=== PATIENT | female | born 1955 | race Hispanic/Latino ===

== ENCOUNTER 2020-08-19 22:37 | Inpatient (IN) | payer OTHER, SELFPAY ==
[2020-08-19 23:21] LABS: Arterial Blood Carboxyhemoglob 1.5 % (0-1.5); Blood Gas Oxyhemoglobin 89.4 % (94-97); Blood O2 Saturation 91.6 % (92-98.5)
[2020-08-19] MEDS ORDERED: ALBUTEROL INHALER 60 PUFF/8 GM IH ONE (23:38)
[2020-08-19 23:39] LABS: Absolute Lymphocytes (CBC) 1.7 K/uL (0.7-4.9); Lymphocytes % 19.8 % (15.3-44.8); MPV 8.8 fL (7.6-11.3); RBC Red Blood Cell Count 4.15 M/uL (3.86-4.86)
[2020-08-19 23:42] LABS: Protime INR 0.97
[2020-08-20 00:12] LABS: Albumin 3.1 g/dL (3.4-5.0); Bilirubin Direct 0.1 mg/dL (0-0.2); Bilirubin Total 0.3 mg/dL (0.2-1.0); Magnesium 2.2 mg/dL (1.8-2.4); Potassium 4.6 mmol/L (3.5-5.1); Protein, Total 7.3 g/dL (6.4-8.2)
--- NOTE | 2020-08-20 00:26 | EDPHYS ---
Physician Documentation [facility] Name: Cristela Post Age: 65 yrs Sex: Female : 1955 Arrival Date: 08/19/2020 Time: 22:38 Bed 4 Private MD: ED Physician Fernando Alvares HPI: 08/19 23:21 This 65 yrs old Female presents to ER via EMS with complaints of Breathing pkl Difficulty. 23:21 The patient has shortness of breath at rest. Onset: The symptoms/episode began/occurred pkl 1 month(s) ago, and became worse 4 day(s) ago. Associated signs and symptoms: The patient has no apparent associated signs or symptoms. Patient said she had the same symptoms when she had cardiac stents placement about 20 years ago. Historical: - Allergies: 22:54 No Known Allergies; rv - PMHx: 22:54 Diabetes - IDDM; Hyperlipidemia; Hypertension; rv - PSHx: 22:54 CARDIAC STENT; Cholecystectomy; ; rv - Immunization history:: Adult Immunizations up to date, Flu vaccine is not up to date. - Social history:: Smoking status: Patient/guardian denies using tobacco, the patient reports quitting approximately 40 years ago. ROS: 23:21 Eyes: Negative for injury, pain, redness, and discharge, ENT: Negative for injury, pkl pain, and discharge, Neck: Negative for injury, pain, and swelling, Cardiovascular: Negative for chest pain, palpitations, and edema. 23:21 Respiratory: Positive for shortness of breath. 23:21 Abdomen/GI: Negative for abdominal pain, nausea, vomiting, and diarrhea. 23:21 Back: Negative for acute changes. 23:21 : Negative for urinary symptoms. 23:21 MS/extremity: Negative for acute changes. 23:21 Skin: Negative for rash. 23:21 Neuro: Negative for altered mental status. Exam: 23:21 Head/Face: Normocephalic, atraumatic. Eyes: Pupils equal round and reactive to light, pkl extra-ocular motions intact. Lids and lashes normal. Conjunctiva and sclera are non-icteric and not injected. Cornea within normal limits. Periorbital areas with no swelling, redness, or edema. ENT: Nares patent. No nasal discharge, no septal abnormalities noted. Tympanic membranes are normal and external auditory canals are clear. Oropharynx with no redness, swelling, or masses, exudates, or evidence of obstruction, uvula midline. Mucous membranes moist. Neck: Trachea midline, no thyromegaly or masses palpated, and no cervical lymphadenopathy. Supple, full range of motion without nuchal rigidity, or vertebral point tenderness. No Meningismus. Chest/axilla: Normal chest wall appearance and motion. Nontender with no deformity. No lesions are appreciated. Cardiovascular: Regular rate and rhythm with a normal S1 and S2. No gallops, murmurs, or rubs. Normal PMI, no JVD. No pulse deficits. 23:21 Respiratory: the patient does not display signs of respiratory distress, Respirations: labored breathing, that is mild, Breath sounds: bronchial sounds, that are mild, are scattered. 23:21 Abdomen/GI: Bowel sounds: normal, Palpation: abdomen is soft and non-tender, in all quadrants. 23:21 Back: Exam negative for acute changes. 23:21 : Exam negative for acute changes. 23:21 Musculoskeletal/extremity: Exam is negative for acute changes. 23:21 Skin: Exam negative for rash. 23:21 Neuro: Orientation: is normal, Mentation: is normal, Cranial nerves: grossly normal, Motor: is normal. Vital Signs: 22:48 BP 131 / 65; Pulse 95; Resp 27; Pulse Ox 94% on R/A; Weight 124.74 kg; Height 5 ft. 3 rv in. (160.02 cm); Pain 0/10; 08/20 00:00 BP 115 / 63; Pulse 90; Resp 20; Pulse Ox 94% on R/A; rv 00:30 BP 115 / 72; Pulse 80; Resp 20; Pulse Ox 93% on R/A; rv 01:00 BP 129 / 75; Pulse 85; Resp 19; Pulse Ox 93% on R/A; rv 01:30 BP 133 / 82; Pulse 76; Resp 14; Pulse Ox 94% on R/A; rv 02:57 BP 135 / 62; Pulse 73; Resp 15; Temp 99; Pulse Ox 94% on R/A; rv 08/19 22:48 Body Mass Index 48.71 (124.74 kg, 160.02 cm) rv MDM: 08/19 22:39 Patient medically screened. pkl 08/20 00:22 Data reviewed: vital signs, nurses notes, lab test result(s), EKG, radiologic studies, pkl plain films. ED course: Talk to Yoseph Rojas, admit to Dr. Skelton. 08/19 23:06 Order name: Basic Metabolic Panel pkl 08/19 23:06 Order name: CBC with Diff pkl 08/19 23:06 Order name: LFT's; Complete Time: 00:26 pkl 08/19 23:06 Order name: Magnesium; Complete Time: 00:26 pkl 08/19 23:06 Order name: NT PRO-BNP; Complete Time: 00:26 pkl 08/19 23:06 Order name: PT-INR; Complete Time: 23:51 pkl 08/19 23:06 Order name: Troponin (emerg Dept Use Only); Complete Time: 00:26 pkl 08/19 23:06 Order name: ABG; Complete Time: 23:51 pkl 08/19 23:06 Order name: D-Dimer; Complete Time: 23:51 pkl 08/19 23:06 Order name: Blood Culture Adult (2) pkl 08/19 23:06 Order name: Lactate; Complete Time: 00:26 pkl 08/19 23:06 Order name: Procalcitonin; Complete Time: 00:26 pkl 08/19 23:06 Order name: COVID-19 pkl 08/19 23:07 Order name: Basic Metabolic Panel; Complete Time: 00:26 EDMS 08/19 23:07 Order name: CBC with Automated Diff; Complete Time: 23:51 EDMS 08/20 01:08 Order name: Basic Metabolic Panel EDMS 08/20 01:08 Order name: Basic Metabolic Panel EDMS 08/20 01:08 Order name: CBC with Automated Diff EDMS 08/20 01:08 Order name: CBC with Automated Diff EDMS 08/20 01:08 Order name: Lipid Profile EDMS 08/20 01:08 Order name: Lipid Profile EDMS 08/20 01:08 Order name: Protime (+INR) EDMS 08/20 01:08 Order name: Protime (+INR) EDMS 08/20 01:08 Order name: PTT, Activated Partial Thromb EDMS 08/20 01:08 Order name: PTT, Activated Partial Thromb EDMS 08/20 01:08 Order name: Troponin I EDMS 08/20 01:08 Order name: Troponin I EDMS 08/20 01:08 Order name: Troponin I EDMS 08/20 01:08 Order name: Troponin I EDMS 08/20 01:08 Order name: Troponin I EDMS 08/19 23:06 Order name: XRAY Chest (1 view) pkl 08/19 23:06 Order name: EKG; Complete Time: 23:07 pkl 08/19 23:06 Order name: Cardiac monitoring; Complete Time: 23:28 pkl 08/19 23:06 Order name: EKG - Nurse/Tech; Complete Time: 00:05 pkl 08/19 23:06 Order name: IV Saline Lock; Complete Time: 23:29 pkl 08/19 23:06 Order name: Labs collected and sent; Complete Time: 23:29 pkl 08/19 23:06 Order name: O2 Per Protocol; Complete Time: 23:29 pkl 08/19 23:06 Order name: O2 Sat Monitoring; Complete Time: 23:29 pkl 08/20 01:04 Order name: CONS Physician Consult EDMS 08/20 01:08 Order name: NPO EDMS 08/20 01:10 Order name: Echo with Doppler EDMS 08/20 01:10 Order name: Vent Perfusion VQ Scan EDMS 08/20 02:27 Order name: SARS-COV-2 RT PCR; Complete Time: 05:34 EDMS 08/20 02:55 Order name: Lactate Sepsis 2 HR Follow-up; Complete Time: 05:34 EDMS Administered Medications: 08/19 23:29 Not Given (N/A): Albuterol - atroVENT (3:1) (2.5 mg - 0.5 mg) 3 ml Nebulizer once rv 23:29 Drug: Albuterol HFA Inhaler 2 puffs Route: Inhalation; rv 08/20 01:48 Follow up: Response: No adverse reaction rv Disposition: 08/20/20 00:25 Hospitalization ordered by Josh Skelton for Inpatient Admission. Preliminary diagnosis is Acute dyspnea. Hypoxia. Elevated Troponin. Chronic renal disease. - Bed requested for Telemetry/MedSurg (Inpatient). - Status is Inpatient Admission. rv - Condition is Stable. - Problem is new. - Symptoms are unchanged. Signatures: Dispatcher [employer] EDFernando Mendoza MD MD pkl Garcia Nova, AMY RN cg Joey Fletcher RN RN rv Corrections: (The following items were deleted from the chart) 02:40 00:25 Hospitalization Ordered by Josh Skelton MD for Inpatient Admission. Preliminary cg diagnosis is Acute dyspnea. Hypoxia. Elevated Troponin. Chronic renal disease. Bed requested for Telemetry/MedSurg (Inpatient). Status is Inpatient Admission. Condition is Stable. Problem is new. Symptoms are unchanged. pkl 02:58 02:40 08/20/2020 00:25 Hospitalization Ordered by Josh Skelton MD for Inpatient rv Admission. Preliminary diagnosis is Acute dyspnea. Hypoxia. Elevated Troponin. Chronic renal disease. Bed requested for Telemetry/MedSurg (Inpatient). Status is Inpatient Admission. Condition is Stable. Problem is new. Symptoms are unchanged. cg
--- NOTE | 2020-08-20 00:26 | ER ---
Nurse's Notes [facility] Name: Cristela Post Age: 65 yrs Sex: Female : 1955 Arrival Date: 08/19/2020 Time: 22:38 Bed 4 Private MD: Diagnosis: Acute dyspnea. Hypoxia. Elevated Troponin. Chronic renal disease Presentation: 08/19 22:48 Chief complaint: EMS states: PATIENT HAS BEEN COMPLAINING OF SOB FOR FOUR DAYS. DENIES rv CHEST PAIN. NO FEVER. SATURATION IS AT 92% AT HOME, REFUSED OXYGEN SUPPLEMENTATION. TACHYPNEIC AT REST. BGL IS 304. PATIENT IS NOT COMPLIANT WITH INSULIN TREATMENT. Coronavirus screen: Client denies travel out of the [place] in the last 14 days. difficulty breathing, shortness of breath, Client presents with at least one sign or symptom that may indicate coronavirus-19. Standard/surgical mask placed on the client. Provider contacted for isolation considerations. The client reports previous COVID testing was negative. Date of collection: August 13, 2020 Aug, RESULT IS NEGATIVE. Ebola Screen: No symptoms or risks identified at this time. Initial Sepsis Screen: Does the patient meet any 2 criteria? RR > 20 per min. HR > 90 bpm. Yes Does the patient have a suspected source of infection? Yes:. Risk Assessment: Do you want to hurt yourself or someone else? Patient reports no desire to harm self or others. Onset of symptoms was August 15, 2020. 22:48 Method Of Arrival: EMS: [facility] rv 22:48 Acuity: MILDRED 3 rv Triage Assessment: 22:54 General: Appears uncomfortable, Behavior is calm, cooperative. Pain: Denies pain. EENT: rv No signs and/or symptoms were reported regarding the EENT system. Neuro: Level of Consciousness is awake, alert, obeys commands, Oriented to person, place, time, situation. Cardiovascular: Patient's skin is warm and dry. Respiratory: Reports shortness of breath at rest Onset: The symptoms/episode began/occurred gradually, the patient has mild shortness of breath. Derm: Skin is intact. Historical: - Allergies: 22:54 No Known Allergies; rv - PMHx: 22:54 Diabetes - IDDM; Hyperlipidemia; Hypertension; rv - PSHx: 22:54 CARDIAC STENT; Cholecystectomy; ; rv - Immunization history:: Adult Immunizations up to date, Flu vaccine is not up to date. - Social history:: Smoking status: Patient/guardian denies using tobacco, the patient reports quitting approximately 40 years ago. Screenin:55 Abuse screen: Denies threats or abuse. Denies injuries from another. Nutritional rv screening: No deficits noted. Tuberculosis screening: No symptoms or risk factors identified. Fall Risk None identified. Assessment: 22:55 Respiratory: Airway is patent Respiratory effort is even, Respiratory pattern is rv tachypnea 22:56 Cardiovascular: Rhythm is regular. rv 23:38 Respiratory: Breath sounds are clear bilaterally. rv 08/20 01:47 Reassessment: patient is comfortable in upright position. vital signs stable. denies rv chest pain. Neuro: Level of Consciousness is awake, alert, obeys commands, Oriented to person, place, time, situation. Vital Signs: 08/19 22:48 BP 131 / 65; Pulse 95; Resp 27; Pulse Ox 94% on R/A; Weight 124.74 kg; Height 5 ft. 3 rv in. (160.02 cm); Pain 0/10; 08/20 00:00 BP 115 / 63; Pulse 90; Resp 20; Pulse Ox 94% on R/A; rv 00:30 BP 115 / 72; Pulse 80; Resp 20; Pulse Ox 93% on R/A; rv 01:00 BP 129 / 75; Pulse 85; Resp 19; Pulse Ox 93% on R/A; rv 01:30 BP 133 / 82; Pulse 76; Resp 14; Pulse Ox 94% on R/A; rv 02:57 BP 135 / 62; Pulse 73; Resp 15; Temp 99; Pulse Ox 94% on R/A; rv 08/19 22:48 Body Mass Index 48.71 (124.74 kg, 160.02 cm) rv ED Course: 08/19 22:38 Patient arrived in ED. cl3 22:39 Fernando Alvares MD is Attending Physician. pkl 22:48 Joey Fletcher RN is Primary Nurse. rv 22:52 Triage completed. rv 22:55 Arm band placed on right wrist. Patient placed in the treatment room, on a stretcher, rv Patient notified of wait time. 22:56 Patient has correct armband on for positive identification. Pulse ox on. NIBP on. rv 23:43 Notified ED physician of a critical lab result(s). D dimer of 667. fc 23:44 XRAY Chest (1 view) In Process Unspecified. EDMS 08/20 00:24 Josh Skelton MD is Hospitalizing Provider. pkl 00:30 No provider procedures requiring assistance completed. Inserted saline lock: 22 gauge rv in left forearm, using aseptic technique. Blood collected. 00:30 Initial lab(s) drawn, by ED staff, sent to lab. rv 01:47 Awaiting bed assignment, Awaiting lab results. rv 02:57 IV is patent, with fluids infusing freely, Patient admitted, IV remains in place. rv Administered Medications: 08/19 23:29 Not Given (N/A): Albuterol - atroVENT (3:1) (2.5 mg - 0.5 mg) 3 ml Nebulizer once rv 23:29 Drug: Albuterol HFA Inhaler 2 puffs Route: Inhalation; rv 08/20 01:48 Follow up: Response: No adverse reaction rv Outcome: 00:25 Decision to Hospitalize by Provider. pkl 02:57 Admitted to Tele accompanied by nurse, via wheelchair, room 403, Other sbar Report rv called to STONEY REYES 02:57 Condition: good 02:57 Instructed on the need for admit. 02:58 Patient left the ED. rv Signatures: Dispatcher [employer] EDMS Fernando Alvares MD MD pkl Christelle Rosado, RN RN Joey Reyes RN RN Kimberly Betancourt cl3
[2020-08-20] MEDS ORDERED: NA CHLORIDE 0.9% 1,000 ML ONE (01:48)
[2020-08-20] MEDS ORDERED: INSULIN -REGULAR HUMAN 50 UNIT/0.5 ML ML ONE (01:48)
--- NOTE | 2020-08-20 01:52 | P.HP ---
Certification for Inpatient With expected LOS: >2 Midnights Patient will require the following post-hospital care: None Practitioner: I am a practitioner with admitting privileges, knowledge of patient current condition, hospital course, and medical plan of care. Services: Services provided to patient in accordance with Admission requirements found in Title 42 Section 412.3 of the Code of Federal Regulations <Sergio Rojas - Last Filed: 08/20/20 01:47> Patient History Date of Service: 08/20/20 Reason for admission: Dyspnea/NSTEMI/acute kidney injury History of Present Illness: 65-year-old morbidly obese female with a past medical history of type 2 diabetes mellitus, hyperlipidemia and hypertension presents to the emergency room complaining of shortness of breath at rest. Patient states that over the past month or so she has progressively noted worsening shortness of breath. States that it became worse 4 days ago and that today she had shortness of breath at rest. Patient states that she does not wear home oxygen and has never had COPD. She has not seen a physician recently. In the emergency room patient is alert and oriented x3, in no distress, pleasant and cooperative. Patient states that she feels like she just can't catch her breath. States that she had cardiac stents placed approximately 20 years ago. Emergency room lab work shows an elevated D-dimer of 667, a troponin of 4.0 x1, a blood glucose of 312[place] [address], a creatinine level of 1.55 with a GFR of 34. A BUN of 34. A PO2 of 66.7 with a pH of 7.4 and a lactic acid of 3.0. Vitals are stable with a blood pressure of 131/65, pulse rate of 95, respiratory of 27 and a pulse ox of 94% on room air. Patient weighs 125 kilos and is 5 foot 3 inches tall P her body mass index is 48.7. She denies chest pain at any time. Denies nausea vomiting diarrhea. Patient states that she had a Covid 19 screening done that was negative on August 13. States she has not been around anybody infected. Patient will be admitted and further evaluated. Home medications list reviewed: No - Past Medical/Surgical History Diabetic: Yes -: DM -: HYPERLIPIDEMIA -: HTN -: ETOPIC -: Morbidly obese -: HEART STENTS -: NELSON -: -: KIDNEY STENTS Psychosocial/ Personal History: Lives at home with children. - Family History Family History: Reviewed- Non-Contributory - Social History Smoking Status: Never smoker Alcohol use: No CD- Drugs: No Caffeine use: Yes Place of Residence: Home <Sergio Rojas - Last Filed: 08/20/20 01:47> Date of Service: 08/20/20 <Papi Skeltonkingston Callahan - Last Filed: 08/25/20 08:14> Allergies [place] Allergy (Verified 08/20/20 05:12) Anaphylaxis Home Medications: Aspirin 325 mg PO DAILY 04/18/16 Clopidogrel Bisulfate [Plavix*] 75 mg PO DAILY 04/18/16 Gabapentin [Gralise] 300 mg PO BID 04/18/16 Losartan Potassium [Cozaar] 100 mg PO DAILY 04/18/16 Metformin HCl [Glucophage] 1,000 mg PO BID 04/18/16 Metoprolol Tartrate [Lopressor] 100 mg PO BID 04/18/16 Rosuvastatin [Crestor*] 20 mg PO BEDTIME 04/18/16 Amitriptyline [Elavil] 25 mg PO BID 08/20/20 Chlorthalidone 25 mg PO DAILY 08/20/20 Cholecalciferol (Vitamin D3) [Vitamin D3] 5,000 unit PO DAILY 08/20/20 Ferrous Fumarate/Vit Bcomp&C [Super B-Complex Caplet] 1 each PO DAILY 08/20/20 Insulin Degludec [Tresiba] 80 unit SQ BEDTIME 08/20/20 NPH, Human Insulin Isophane [Humulin N] 100 unit SQ AC 08/20/20 Review of Systems General: As per HPI Eyes: Unremarkable ENT: Unremarkable Respiratory: Shortness of Breath, SOB with Excertion, As per HPI Cardiovascular: As per HPI Gastrointestinal: Unremarkable Genitourinary: Unremarkable Musculoskeletal: Unremarkable Integumentary: Unremarkable Neurological: Unremarkable Lymphatics: Unremarkable <Sergio Rojas - Last Filed: 08/20/20 01:47> Physical Examination - Vital Signs Blood Pressure: 131/65 Pulse: 95 Respirations: 27 Pulse Ox (%): 94 (RA) - Physical Exam General: Alert, In no apparent distress, Oriented x3 HEENT: Atraumatic, Normocephalic, PERRLA, Mucous membr. moist/pink Neck: Supple, No Thyromegaly, Other (Trachea midline) Respiratory: Diminished Cardiovascular: No edema, Normal pulses, Regular rate/rhythm, Normal S1 S2 Gastrointestinal: Normal bowel sounds, Soft and benign, Non-distended Musculoskeletal: No clubbing, No swelling, No contractures, No erythema Integumentary: No rashes, No breakdown, No significant lesion Neurological: Normal gait, Normal speech, Normal strength at 5/5 x4 extr, Normal tone - Studies Laboratory Data (last 24 hrs) 08/19/20 23:05: PT 11.5, INR 0.97 08/19/20 23:05: WBC 8.4, Hgb 10.9 L, Hct 34.0 L, Plt Count 314 08/19/20 23:05: Sodium 136, Potassium 4.6, BUN 34 H, Creatinine 1.55 H, Glucose 312 H, Magnesium 2.2, Total Bilirubin 0.3, AST 73 H, ALT 66, Alkaline Phosphat ase 161 H <Sergio Rojas - Last Filed: 08/20/20 01:47> - Studies Microbiology Data (last 24 hrs): 08/19/20 23:49 Blood - Blood Aerobic Blood Culture - Final No growth in 5 days. 08/19/20 23:49 Blood - Blood Anaerobic Blood Culture - Final No growth in 5 days. 08/19/20 23:40 Blood - Blood Aerobic Blood Culture - Final No growth in 5 days. 08/19/20 23:40 Blood - Blood Anaerobic Blood Culture - Final No growth in 5 days. <Josh Skelton - Last Filed: 08/25/20 08:14> Assessment and Plan - Plan Impression: NSTEMI with a history of cardiac stents x2 20 years ago: Acute respiratory failure: Acute kidney injury: Dyspnea with an elevated D-dimer: Morbid obesity: Plan: NSTEMI with a history of cardiac stents x2 20 years ago: Troponin of 4.0 on arrival to ED. Will continue to trend. Place on continuous telemetry. Full- dose Lovenox of 120 mg b.i.d.. Patient weighs 125 kg. [place]chocardiogram [place] [address]+ Cardiology consult. Acute respiratory failure: Room air saturations of 94%. Patient feels as if she cannot breathe. She is noted to have an elevated D-dimer as well. Will hold off on diuretics due to poor renal function. Will provide O2 support if necessary P Acute kidney injury: Creatinine of 1.55 on admission. Will gently diurese x1 a L of fluid only at 50 mL/hour. Will monitor daily labs. Monitor creatinine. BUN elevated at 38. Dyspnea with an elevated D-dimer: Patient's D-dimer was noted to be 667. Due to her poor renal function CTA to rule out PE is not possible. Will order V/Q scan for the morning. Continue telemetry as above. Monitor O2 saturations and provide O2 support if necessary. Patient on full-dose Lovenox. Morbid obesity: BMI of 48. Counseled. Discharge Plan: Home Plan to discharge in: Greater than 2 days - Advance Directives Does patient have a Living Will: No Does patient have a Durable POA for Healthcare: No - Code Status/Comfort Care Code Status Assessed: Yes Time Spent Managing Pts Care (In Minutes): 55 <Sergio Rojas - Last Filed: 08/20/20 01:47> - Problems (Diagnosis) (1) NSTEMI (non-ST elevated myocardial infarction) Current Visit: Yes Status: Acute (2) DM2 (diabetes mellitus, type 2) Current Visit: Yes Status: Acute (3) HTN (hypertension) Current Visit: Yes Status: Acute (4) Obesity, morbid, BMI 50 or higher Current Visit: Yes Status: Acute (5) Acute systolic CHF (congestive heart failure) Current Visit: Yes Status: Acute (6) Obesity hypoventilation syndrome Current Visit: Yes Status: Acute <Josh Skelton - Last Filed: 08/25/20 08:14> Date of Service: 08/20/20 Patient was found to have pneumonia.Patient also found to have a non-ST elevation myocardial infarction with elevated troponins. Patient looks to have congestive heart failure as well as well as obesity hypoventilation syndrome. Work up will be pending. Otherwise, I agree with plan of care as mentioned above. <Josh Skelton - Last Filed: 08/25/20 08:14>
[2020-08-20] MEDS ORDERED: NA CHLORIDE 0.9% 1,000 ML IV SCH (02:00)
--- NOTE | 2020-08-20 07:57 | RAD REPORT ---
EXAM DESCRIPTION: Lacey Single View08/19/2020 11:45 pm CLINICAL HISTORY: Shortness breath COMPARISON: 2007 FINDINGS: The lungs appear hazy. Heart is normal size IMPRESSION: Lungs appear hazy probably pneumonia or pulmonary edema
[2020-08-20] MEDS: Enoxaparin 120 MG/0.8 ML SYR SQ SCH ×3 (08:43→20:50)
[2020-08-20] MEDS: CLOPIDOGREL 75 MG TABLET PO SCH (08:47)
[2020-08-20] MEDS: ASPIRIN 325 MG TAB PO SCH (08:47)
[2020-08-20] MEDS: INSULIN -REGULAR HUMAN 50 UNIT/0.5 ML ML SQ SCH ×4 (08:48→20:50)
--- NOTE | 2020-08-20 08:59 | RAD REPORT ---
EXAM DESCRIPTION: NM - Vent Perfusion VQ Scan - 08/20/2020 8:53 am CLINICAL HISTORY: Shortness of breath COMPARISON: August 19, 2020 chest x-ray TECHNIQUE: 20.3 Mci [id number] was administered by inhalation. First breath, equilibrium, and washout images of the lungs obtained 7.5 millicuries Technetium-99 MAA was administered intravenously. Anterior, posterior, lateral and ob lique views of the lungs were taken. FINDINGS: A small area of diminished radiotracer uptake involves the left lateral lung base on venti lation and perfusion sequences The remainder of the lungs demonstrate relatively homogeneous radiotracer activity on ventilation and perfusion sequences. No mismatched segmental or lobar perfusion defects are seen. IMPRESSION: The patient has a low probability for a pulmonary embolus
[2020-08-20] MEDS ORDERED: FUROSEMIDE 40 MG/4 ML VIAL IV SCH (11:08)
[2020-08-20] MEDS: LOSARTAN POTASSIUM 50 MG TABLET PO SCH (13:28)
[2020-08-20 18:59] LABS: Urine Appearance CLEAR; Urine Bilirubin NEGATIVE (NEG); Urine Blood NEGATIVE (NEG); Urine Color YELLOW; Urine Glucose NEGATIVE (NEG); Urine Protein NEGATIVE (NEG); Urine Urobilinogen 0.2 mg/dL (0.2-1.0)
--- NOTE | 2020-08-20 18:59 | P.PN ---
Subjective Date of Service: 08/20/20 Subjective: No C/O voiced Patient is telling me that she is going to have some difficulty laying down flat. I have spoken with Cardiology about this and they will try to see if we can diurese her and get her to feel better. Hopefully will be able to proceed with cardiac catheterization over the next 24 hr. Review of Systems 10-point ROS is otherwise unremarkable Physical Examination - Vital Signs Temperature: 97.2 F Blood Pressure: 136/63 Pulse: 90 Respirations: 18 Pulse Ox (%): 96 - Physical Exam General: Alert, In no apparent distress, Oriented x3 Respiratory: Diminished, Crackles/rales Cardiovascular: Regular rate/rhythm, Normal S1 S2, Systolic murmur Gastrointestinal: Normal bowel sounds, Soft and benign, Non-distended Musculoskeletal: No clubbing, Swelling Neurological: Sensation intact, Cranial nerves 3-12 intact, Abnormal strength - Studies Laboratory Data (last 24 hrs) 08/19/20 23:05: PT 11.5, INR 0.97 08/19/20 23:05: WBC 8.4, Hgb 10.9 L, Hct 34.0 L, Plt Count 314 08/19/20 23:05: Sodium 136, Potassium 4.6, BUN 34 H, Creatinine 1.55 H, Glucose 312 H, Magnesium 2.2, Total Bilirubin 0.3, AST 73 H, ALT 66, Alkaline Phosphatase 161 H Assessment & Plan - Problems (Diagnosis) (1) NSTEMI (non-ST elevated myocardial infarction) Current Visit: Yes Status: Acute (2) DM2 (diabetes mellitus, type 2) Current Visit: Yes Status: Acute (3) HTN (hypertension) Current Visit: Yes Status: Acute (4) Obesity, morbid, BMI 50 or higher Current Visit: Yes Status: Acute (5) Acute systolic CHF (congestive heart failure) Current Visit: Yes Status: Acute (6) Obesity hypoventilation syndrome Current Visit: Yes Status: Acute - Plan 1. Echocardiogram revealed an ejection fraction of 34%. Continue with diuresing. Continue cardiac medications. Appreciate cardiology consultation will try to get cardiac catheterization performed of the next 24 hr. However the patient is not able lay down flat so this is going to be difficult. Will try to diurese her more effectively prior to cardiac catheterization. Repeat chest x-ray to make sure pulmonary edema is improved. Continue monitoring daily weight and educate patient regarding heart failure diet. Discharge Plan: Home Plan to discharge in: Greater than 2 days - Advance Directives Does patient have a Living Will: No Does patient have a Durable POA for Healthcare: No - Code Status/Comfort Care Code Status Assessed: Yes Code Status: Full Code Critical Care: No Time Spent Managing PTS Care (In Minutes): 35
[2020-08-20 19:08] LABS: Urine Microscopic Reflex ORDER UMIC
[2020-08-20] MEDS ORDERED: FUROSEMIDE 20 MG/ 2ML VIAL IV ONE (19:19)
[2020-08-20] MEDS ORDERED: ALBUMIN HUMAN 25% 50 ML IV ONE ×2 (19:20→20:32)
[2020-08-20 19:35] LABS: Urine Bacteria <20 /HPF (<20); Urine RBC <5 /HPF (NONE SEEN)
[2020-08-20 19:46] LABS: Urine Culture Reflex Order REFLEXED
[2020-08-20] MEDS ORDERED: ACETYLCYST 6,000 MG/30 ML VIAL ONE (20:32)
[2020-08-20] MEDS ORDERED: FUROSEMIDE 20 MG/ 2ML VIAL ONE (20:32)
[2020-08-20] MEDS: ROSUVASTATIN 10 MG TAB PO SCH (20:51)
[2020-08-20] MEDS: GABAPENTIN 300 MG CAP PO SCH (20:51)
[2020-08-20] MEDS: AMITRIPTYLINE 25 MG TAB PO SCH (20:51)
[2020-08-20] MEDS: METOPROLOL TAR 50 MG TAB PO SCH (20:51)
[2020-08-20] MEDS: ACETYLCYST 20% 800 MG/4 ML VIAL PO SCH (20:53)
--- NOTE | 2020-08-21 05:30 | EKG ---
Test Date: 2020-08-19 Test Time: 23:54:52 Supervisor Glycerin: RV MEASUREMENT RESULTS: Intervals: Rate: 84 CA: 168 QRSD: 88 QT: 372 QTc: 439 [place]: P: 34 CA: 168 QRS: -42 T: 157 INTERPRETIVE STATEMENTS: Normal sinus rhythm Left axis deviation Possible Anterior infarct, age undetermined ST & T wave abnormality, consider lateral ischemia Abnormal ECG Compared to ECG 10/17/2008 06:18:12 Left-axis deviation now present ST (T wave) deviation now present Possible ischemia now present Myocardial infarct finding still present Electronically Signed On 08-21-20 05:28:47 CDT by Carmine Garcia
[2020-08-21 06:23] LABS: Basophils % 0.9 % (0-1.3); Hematocrit 31.2 % (36.0-45.0); Lymphocytes % 21.6 % (15.3-44.8); MPV 8.6 fL (7.6-11.3)
[2020-08-21 06:27] LABS: Protime INR 1.12
[2020-08-21 06:41] LABS: Potassium 4.4 mmol/L (3.5-5.1)
--- NOTE | 2020-08-21 07:27 | ECHO ---
HEIGHT: 5 ft 3 in WEIGHT: 284 lb 4.8 oz DATE OF STUDY: 08/20/[address]: Sergio Rojas 2-DIMENSIONAL: YES M.MODE: YES DOPPLER: YES COLOR FLOW: YES TDS: YES PORTABLE: DEFINITY: BUBBLE STUDY: DIAGNOSIS: DYSPNEA, ELEVATED TROPONIN CARDIAC HISTORY: CATHERIZATION: YES SURGERY: NO PROSTHETIC VALVE: NO PACEMAKER: NO MEASUREMENTS (cm) DIASTOLIC (NORMALS) SYSTOLIC (NORMALS) IVSd 1.2 (0.6-1.2) LA Diam 3.6 (1.9-4.0) LVEF 43% LVIDd 3.9 (3.5-5.7) LVIDs 3.1 (2.0-3.5) %FS 21% LVPWd 1.3 (0.6-1.2) Ao Diam 2.4 (2.0-3.7) 2 DIMENSIONAL ASSESSMENT: RIGHT ATRIUM: NORMAL LEFT ATRIUM: NORMAL RIGHT VENTRICLE: NORMAL LEFT VENTRICLE: NORMAL TRICUSPID VALVE: NORMAL MITRAL VALVE: NORMAL PULMONIC VALVE: NORMAL AORTIC VALVE: NORMAL PERICARDIAL EFFUSION: NONE AORTIC ROOT: NORMAL LEFT VENTRICULAR WALL MOTION: MILD GLOBAL HYPOKINESIS DOPPLER/COLOR FLOW: NORMAL COMMENTS: MILD GLOBAL HYPOKINESIS. EJECTION FRACTION 43%. TECHNICALLY DIFFICULT STUDY. NO EFFUSION. TECHNOLOGIST: BRANDON HARDIN
--- NOTE | 2020-08-21 08:01 | RAD REPORT ---
EXAM DESCRIPTION: RAD - Chest Single View - 08/21/2020 5:29 am CLINICAL HISTORY: pneumonia COMPARISON: Portable chest August 19 TECHNIQUE: AP portable chest image was obtained 08/21/2020 5:29 am . FINDINGS: Exam is limited by large body habitus and shallow inspiration. Interstitial markings remain prominent. Interstitial and patchy alveolar opacification has developed in the right lung base progressive from the prior study. This could be infiltrate or edema. Heart siz e is prominent. Vasculature is prominent but not clearly different. No measurable pleural effusion an d no pneumothorax. No acute bony abnormality seen. No acute aortic findings suspected. IMPRESSION: Limited portable study showing increasing right base opacification. Pneumonia is favored over edema.
[2020-08-21] MEDS: LOSARTAN POTASSIUM 50 MG TABLET PO SCH (08:08)
[2020-08-21] MEDS: ASPIRIN 325 MG TAB PO SCH (08:08)
[2020-08-21] MEDS: VITAMIN D 5,000 UNIT CAP PO SCH (08:08)
[2020-08-21] MEDS: CLOPIDOGREL 75 MG TABLET PO SCH (08:09)
[2020-08-21] MEDS: INSULIN -REGULAR HUMAN 50 UNIT/0.5 ML ML SQ SCH ×4 (08:09→21:19)
[2020-08-21] MEDS: VITAMIN B COMPLEX 1 CAP PO SCH (08:09)
[2020-08-21] MEDS: AMITRIPTYLINE 25 MG TAB PO SCH ×2 (08:09→21:19)
[2020-08-21] MEDS: GABAPENTIN 300 MG CAP PO SCH ×2 (08:09→21:19)
[2020-08-21] MEDS: Enoxaparin 120 MG/0.8 ML SYR SQ SCH ×2 (08:10→21:18)
[2020-08-21] MEDS: METOPROLOL TAR 50 MG TAB PO SCH ×2 (08:10→21:19)
[2020-08-21] MEDS: ACETYLCYST 20% 800 MG/4 ML VIAL PO SCH (08:12)
--- NOTE | 2020-08-21 10:47 | CON ---
Date of Consultation: 08/20/2020 Reason For Consultation: Non-ST elevation myocardial infarction. History Of Present Illness: Ms. Post is a 65-year-old woman, who came into the emergency room w ith shortness of breath. She is known to have coronary artery disease status post stent. Has had a history of diabetes, hypertension, dyslipidemia. She has obesity. Has had a cholecystectomy and a C -section in the past. She came in with shortness of breath, chest pressure, some nausea, diaphoresis . No PND, orthopnea, pedal edema, palpitation, or syncope. Her troponins were positive and we were consulted. Past Medical History: As stated above. Allergies: [place]. Review of Systems: Negative. Social History: Negative. Family History: Positive for heart disease. Medications: Include amitriptyline, aspirin, Plavix, insulin, losartan, metoprolol, and Crestor. Physical Examination: Vital Signs: Stable. She was afebrile. HEENT: Negative. Neck: Supple with no bruit. Chest: Clear. Cardiac: Revealed a regular rhythm and rate. No murmurs, gallops, or rubs. Abdomen: Benign. Extremities: Revealed no clubbing, cyanosis, or edema. Diagnostic Data: Her creatinine is 1.47. Her D-dimer was 667. Her troponin was 4.15. Her glucose was 205. BNP was 10,269. Echocardiogram showed mild global hypokinesis with an ejection fraction of 43%. Impression And Plan: 1.Non-ST elevation myocardial infarction. 2.Congestive heart failure, chronic, systolic, with acute exacerbation. 3.Diabetes. 4.Hypertension. 5.Dyslipidemia. 6.Obesity. 7.Coronary artery disease, status post stent in the past. Plan for left heart catheterization with possible coronary intervention, which will be done on 08/21/2020. The patient understands the risk a nd the benefits of the procedure, and she agrees to proceed. LIANNA/WAQAR Voice ID: [id number] Report ID: [id number]
[2020-08-21] MEDS: PIPER/TAZO/NS 3.375gm 3.375 GM/100 ML BAG IVPB SCH ×2 (11:55→17:42)
[2020-08-21] MEDS ORDERED: HEPA 1000U/500MLS 0 UNIT/0 ML BAG IV ONE (14:01)
[2020-08-21] MEDS ORDERED: NICARDIPINE HCL 25 MG/10 ML IV ONE (14:02)
[2020-08-21] MEDS ORDERED: ATROPINE SULF 1 MG/10 ML SYR IV ONE (14:02)
[2020-08-21] MEDS ORDERED: NITROGLYCERIN 100 MCG/ML SYR (for cath lab use only) IV ONE (14:02)
[2020-08-21] MEDS ORDERED: HEPARIN 5000 UNIT/ML 1 ML VIAL ONE (14:02)
[2020-08-21] MEDS ORDERED: FENTANYL CITR 100 MCG/2 ML ONE (14:02)
[2020-08-21] MEDS ORDERED: MIDAZOLAM HCL 2 MG/2 ML INJ ONE (14:02)
--- OUTSIDE RECORDS SUMMARY | 2020-08-21 17:03 | XMS REPORT | Continuity of Care Document ---
:1955 Author Organization [facility] t Address [address] [place] [address] [address] [place] [address] Care Team Providers Name Role Phone Jose BANERJEE Attending Clinician Doctor Unassigned, Name Attending Clinician Unavailable Costa BANERJEE, Saman Attending Clinician Unavailable Problems This patient has no known problems. Allergies, Adverse Reactions, Alerts This patient has no known allergies or adverse reactions. Medications This patient has no known medications. Procedures This patient has no known procedures. Encounters Start End Encounter Admission Attending Care Care Encounter Source Date/Time Date/Time Type Type Clinicians Facility Department ID 2020-01-11 2020-01-11 Telephone DAYNE Garcia [id number] 00:00:00 00:00:00 Fernie Rivera [id number] [place] [id number] [facility] [phone] nal [address] Building 2019-06-26 2019-06-26 Orders Doctor TARAN [id number] 00:00:00 00:00:00 Only Unassigned, YANELY [id number] [place] [facility] [id number] 2019-05-12 2019-05-12 Refill ADYNE Skelton [id number] 00:00:00 00:00:00 Sandy Rivera [id number] [place] [id number] [facility] [phone] nal [address] Building Results This patient has no known results.
[2020-08-21] MEDS: FUROSEMIDE 20 MG/ 2ML VIAL IV SCH (17:33)
[2020-08-21] MEDS: ROSUVASTATIN 10 MG TAB PO SCH (21:19)
[2020-08-22] MEDS: PIPER/TAZO/NS 3.375gm 3.375 GM/100 ML BAG IVPB SCH ×3 (01:17→17:45)
[2020-08-22] MEDS: FUROSEMIDE 20 MG/ 2ML VIAL IV SCH ×2 (01:17→08:45)
[2020-08-22] MEDS: INSULIN -REGULAR HUMAN 50 UNIT/0.5 ML ML SQ SCH ×4 (07:30→20:27)
[2020-08-22] MEDS: LOSARTAN POTASSIUM 50 MG TABLET PO SCH (08:45)
[2020-08-22] MEDS: Enoxaparin 120 MG/0.8 ML SYR SQ SCH ×2 (08:45→20:26)
[2020-08-22] MEDS: AMITRIPTYLINE 25 MG TAB PO SCH ×2 (08:45→20:26)
[2020-08-22] MEDS: VITAMIN D 5,000 UNIT CAP PO SCH (08:45)
[2020-08-22] MEDS: METOPROLOL TAR 50 MG TAB PO SCH ×2 (08:45→20:27)
[2020-08-22] MEDS: GABAPENTIN 300 MG CAP PO SCH ×2 (08:45→20:26)
[2020-08-22] MEDS: ASPIRIN 325 MG TAB PO SCH (08:45)
[2020-08-22] MEDS: CLOPIDOGREL 75 MG TABLET PO SCH (08:45)
[2020-08-22] MEDS: VITAMIN B COMPLEX 1 CAP PO SCH (08:57)
[2020-08-22] MEDS ORDERED: FUROSEMIDE 20 MG/ 2ML VIAL IV ONE (12:00)
[2020-08-22] MEDS: FUROSEMIDE 40 MG/4 ML VIAL IV SCH (17:44)
[2020-08-22] MEDS: ROSUVASTATIN 10 MG TAB PO SCH (20:26)
[2020-08-23] MEDS: FUROSEMIDE 40 MG/4 ML VIAL IV SCH ×3 (01:18→17:06)
[2020-08-23] MEDS: PIPER/TAZO/NS 3.375gm 3.375 GM/100 ML BAG IVPB SCH ×3 (01:19→17:07)
[2020-08-23 05:11] LABS: Potassium 3.8 mmol/L (3.5-5.1)
[2020-08-23] MEDS: INSULIN -REGULAR HUMAN 50 UNIT/0.5 ML ML SQ SCH ×4 (07:30→20:49)
[2020-08-23] MEDS ORDERED: POTASSIUM CL SA 10 MEQ TAB PO ONE (08:00)
[2020-08-23] MEDS: GABAPENTIN 300 MG CAP PO SCH ×2 (08:03→20:48)
[2020-08-23] MEDS: METOPROLOL TAR 50 MG TAB PO SCH ×2 (08:03→20:48)
[2020-08-23] MEDS: VITAMIN B COMPLEX 1 CAP PO SCH (08:03)
[2020-08-23] MEDS: CLOPIDOGREL 75 MG TABLET PO SCH (08:04)
[2020-08-23] MEDS: ASPIRIN 325 MG TAB PO SCH (08:04)
[2020-08-23] MEDS: Enoxaparin 120 MG/0.8 ML SYR SQ SCH ×2 (08:04→20:47)
[2020-08-23] MEDS: AMITRIPTYLINE 25 MG TAB PO SCH ×2 (08:04→20:48)
[2020-08-23] MEDS: VITAMIN D 5,000 UNIT CAP PO SCH (08:04)
[2020-08-23] MEDS: LOSARTAN POTASSIUM 50 MG TABLET PO SCH (08:04)
--- NOTE | 2020-08-23 16:52 | P.PN ---
Subjective Date of Service: 08/21/20 Patient did well with no new complaints. Continue with diuresing. Unable to lay down flat. Review of Systems 10-point ROS is otherwise unremarkable Physical Examination - Vital Signs Temperature: 97.2 F Blood Pressure: 136/63 Pulse: 90 Respirations: 18 Pulse Ox (%): 96 - Physical Exam General: Alert, In no apparent distress, Oriented x3 Neck: JVD not distended Respiratory: Crackles/rales Cardiovascular: Regular rate/rhythm, Normal S1 S2, Systolic murmur Gastrointestinal: Normal bowel sounds, Soft and benign, Non-distended, No tenderness Musculoskeletal: No clubbing, No tenderness, Swelling Neurological: Sensation intact, Cranial nerves 3-12 intact - Studies Medications List Reviewed: Yes Assessment & Plan - Problems (Diagnosis) (1) NSTEMI (non-ST elevated myocardial infarction) Current Visit: Yes Status: Acute (2) DM2 (diabetes mellitus, type 2) Current Visit: Yes Status: Acute (3) HTN (hypertension) Current Visit: Yes Status: Acute (4) Obesity, morbid, BMI 50 or higher Current Visit: Yes Status: Acute (5) Acute systolic CHF (congestive heart failure) Current Visit: Yes Status: Acute (6) Obesity hypoventilation syndrome Current Visit: Yes Status: Acute - Plan 1. Continue with diuresing 2. Cancel cardiac catheterization until patient able the lay and flat which will be hopefully Tuesday 3. Chest pain is improved 4. Continue with cardiac meds 5. Strict blood sugar and blood pressure control 6. Out of bed and ambulate 7. GI and DVT prophylaxis Discharge Plan: Home Plan to discharge in: Greater than 2 days - Advance Directives Does patient have a Living Will: No Does patient have a Durable POA for Healthcare: No - Code Status/Comfort Care Code Status: Full Code Critical Care: No Time Spent Managing PTS Care (In Minutes): 35
--- NOTE | 2020-08-23 16:53 | P.PN ---
Subjective Date of Service: 08/22/20 Increase Lasix at 80 Q 12. Urine output has picked up. Renal function is stable. Hopefully will be able to do cardiac catheterization on Tuesday. Have encouraged her to lay down flat and see how she does. Review of Systems 10-point ROS is otherwise unremarkable Physical Examination - Vital Signs Temperature: 97.2 F Blood Pressure: 136/63 Pulse: 90 Respirations: 18 Pulse Ox (%): 96 - Physical Exam General: Alert, In no apparent distress, Oriented x3 Respiratory: Diminished, Crackles/rales Cardiovascular: Regular rate/rhythm, Normal S1 S2, Systolic murmur Gastrointestinal: Normal bowel sounds, Soft and benign, Non-distended, No tenderness Musculoskeletal: No clubbing, No tenderness, Swelling Neurological: Normal strength at 5/5 x4 extr, Normal tone - Studies Medications List Reviewed: Yes Assessment & Plan - Problems (Diagnosis) (1) NSTEMI (non-ST elevated myocardial infarction) Current Visit: Yes Status: Acute (2) DM2 (diabetes mellitus, type 2) Current Visit: Yes Status: Acute (3) HTN (hypertension) Current Visit: Yes Status: Acute (4) Obesity, morbid, BMI 50 or higher Current Visit: Yes Status: Acute (5) Acute systolic CHF (congestive heart failure) Current Visit: Yes Status: Acute (6) Obesity hypoventilation syndrome Current Visit: Yes Status: Acute - Plan Continue with plan of care as mentioned below 1. Continue with diuresing 2. Cardiac catheterization will be hopefully Tuesday 3. Pain control 4. Continue with cardiac meds 5. Strict blood sugar and blood pressure control 6. Out of bed and ambulate 7. GI and DVT prophylaxis - Advance Directives Does patient have a Living Will: No Does patient have a Durable POA for Healthcare: No - Code Status/Comfort Care Code Status: Full Code
--- NOTE | 2020-08-23 16:56 | P.PN ---
Subjective Date of Service: 08/23/20 Patient continues to feel better. Monitor weights. Continue to gently diurese as well. Patient is able to lay down flat for about 5-10 min at this time. She is going to keep trying to work on increasing the amount of time she is lying down. Goal is to try to get 30-45 min. Review of Systems 10-point ROS is otherwise unremarkable Physical Examination - Vital Signs Temperature: 97.2 F Blood Pressure: 136/63 Pulse: 90 Respirations: 18 Pulse Ox (%): 96 - Physical Exam General: Alert, In no apparent distress, Oriented x3 Respiratory: Diminished, Crackles/rales Cardiovascular: Regular rate/rhythm, Systolic murmur Gastrointestinal: Normal bowel sounds, Soft and benign, Non-distended Musculoskeletal: No clubbing, Swelling Integumentary: No rashes Neurological: Normal gait, Normal speech, Normal strength at 5/5 x4 extr, Normal tone, Sensation intact, Cranial nerves 3-12 intact - Studies Medications List Reviewed: Yes Assessment & Plan - Problems (Diagnosis) (1) NSTEMI (non-ST elevated myocardial infarction) Current Visit: Yes Status: Acute (2) DM2 (diabetes mellitus, type 2) Current Visit: Yes Status: Acute (3) HTN (hypertension) Current Visit: Yes Status: Acute (4) Obesity, morbid, BMI 50 or higher Current Visit: Yes Status: Acute (5) Acute systolic CHF (congestive heart failure) Current Visit: Yes Status: Acute (6) Obesity hypoventilation syndrome Current Visit: Yes Status: Acute - Plan Continue with plan of care as mentioned below 1. Continue Lasix twice a day; patient doing much better. Weight loss has improved. 2. Cardiac catheterization will be hopefully Tuesday; will make patient lay down flat and see how she tolerates so hopefully we can proceed with cardiac catheterization on Tuesday 3. Pain control 4. Continue with cardiac meds 5. Strict blood sugar and blood pressure control; patient also needs to continue monitoring her dietary intake and needs to develop an exercise regimen at the time of discharge. 6. Out of bed and ambulate 7. GI and DVT prophylaxis Discharge Plan: Home Plan to discharge in: Greater than 2 days - Advance Directives Does patient have a Living Will: No Does patient have a Durable POA for Healthcare: No - Code Status/Comfort Care Code Status: Full Code Critical Care: No Time Spent Managing PTS Care (In Minutes): 35
[2020-08-23] MEDS: ROSUVASTATIN 10 MG TAB PO SCH (20:48)
--- NOTE | 2020-08-23 21:22 | PN ---
Date of Progress Note: 08/22/2020 Subjective: Ms. Post was on the schedule for heart catheterization with possible intervention o n 08/21/2020. However, when she was taken to the stores lab[facility], she could not lay flat. The procedure wa s canceled. This morning, she remained on IV Lasix only 20 mg b.i.d. She continues to have edema, P ND, orthopnea, hypoxia. No chest pain. She does have an ejection fraction that is about 39%, pedal edema. The case was discussed with Dr. Skelton. Her catheterization was postponed until 08/25/[address] Ng. We will continue to plan on that, but we will do much more aggressive diuresis between n ow and then watching her creatinine, watching her weight, watching her I's and O's carefully. LIANNA/WAQAR Voice ID: [id number] Report ID: [id number]
[2020-08-24] MEDS: FUROSEMIDE 40 MG/4 ML VIAL IV SCH ×3 (01:30→16:36)
[2020-08-24] MEDS: PIPER/TAZO/NS 3.375gm 3.375 GM/100 ML BAG IVPB SCH ×3 (01:30→16:35)
[2020-08-24 06:06] LABS: Absolute Lymphocytes (CBC) 1.9 K/uL (0.7-4.9); Basophils % 1.3 % (0-1.3); Hematocrit 34.2 % (36.0-45.0); Lymphocytes % 22.2 % (15.3-44.8); MPV 8.3 fL (7.6-11.3); RBC Red Blood Cell Count 4.31 M/uL (3.86-4.86)
[2020-08-24 06:15] LABS: Protime INR 1.16
[2020-08-24 06:29] LABS: Albumin 3.1 g/dL (3.4-5.0); Bilirubin Total 0.4 mg/dL (0.2-1.0); Magnesium 1.9 mg/dL (1.8-2.4); Phosphorus 4.1 mg/dL (2.5-4.9); Potassium 3.5 mmol/L (3.5-5.1); Protein, Total 6.6 g/dL (6.4-8.2)
[2020-08-24] MEDS ORDERED: POTASSIUM CL SA 10 MEQ TAB PO ONE (08:00)
[2020-08-24] MEDS: METOPROLOL TAR 50 MG TAB PO SCH ×2 (08:01→20:50)
[2020-08-24] MEDS: LOSARTAN POTASSIUM 50 MG TABLET PO SCH (08:06)
[2020-08-24] MEDS: INSULIN -REGULAR HUMAN 50 UNIT/0.5 ML ML SQ SCH ×4 (08:11→20:50)
[2020-08-24] MEDS: Enoxaparin 120 MG/0.8 ML SYR SQ SCH (08:11)
[2020-08-24] MEDS: CLOPIDOGREL 75 MG TABLET PO SCH (08:12)
[2020-08-24] MEDS: ASPIRIN 325 MG TAB PO SCH (08:12)
[2020-08-24] MEDS: VITAMIN D 5,000 UNIT CAP PO SCH (08:12)
[2020-08-24] MEDS: GABAPENTIN 300 MG CAP PO SCH ×2 (08:12→20:51)
[2020-08-24] MEDS: VITAMIN B COMPLEX 1 CAP PO SCH (08:12)
[2020-08-24] MEDS: AMITRIPTYLINE 25 MG TAB PO SCH ×2 (08:12→20:51)
[2020-08-24 09:31] VITALS: BMI 49.6
[2020-08-24] MEDS ORDERED: ALBUMIN HUMAN 25% 50 ML IV ONE (10:07)
--- NOTE | 2020-08-24 11:14 | RAD REPORT ---
EXAM DESCRIPTION: Lacey Single View08/24/2020 10:58 am CLINICAL HISTORY: Chest pain COMPARISON: August 2020 FINDINGS: Partial resolution in mild bibasilar opacities. The heart is mildly enlarged IMPRESSION: Partial resolution in mild bibasilar opacities probably mild pneumonia
--- NOTE | 2020-08-24 13:08 | P.PN ---
Subjective Date of Service: 08/24/20 Patient states she is able lay down for about 20 min at this time. She says she feels she can lay down even longer but she gets interrupted. Her chest x-ray shows partial resolution of the infiltrate or edema that was noted on the prior x-ray. She also feels much better as well. Continue with aggressive diuresing and continue with Lasix. Review of Systems 10-point ROS is otherwise unremarkable Physical Examination - Vital Signs Temperature: 97.2 F Blood Pressure: 136/63 Pulse: 90 Respirations: 18 Pulse Ox (%): 96 - Physical Exam General: Alert, In no apparent distress, Oriented x3, Obese Respiratory: Diminished, Crackles/rales Cardiovascular: Regular rate/rhythm, Normal S1 S2, Systolic murmur Gastrointestinal: Normal bowel sounds, Soft and benign, Non-distended, No tenderness Musculoskeletal: No clubbing, No tenderness, Swelling Neurological: Sensation intact, Cranial nerves 3-12 intact - Studies Medications List Reviewed: Yes Assessment & Plan - Problems (Diagnosis) (1) NSTEMI (non-ST elevated myocardial infarction) Current Visit: Yes Status: Acute (2) DM2 (diabetes mellitus, type 2) Current Visit: Yes Status: Acute (3) HTN (hypertension) Current Visit: Yes Status: Acute (4) Obesity, morbid, BMI 50 or higher Current Visit: Yes Status: Acute (5) Acute systolic CHF (congestive heart failure) Current Visit: Yes Status: Acute (6) Obesity hypoventilation syndrome Current Visit: Yes Status: Acute - Plan Continue with plan of care as mentioned below 1. Continue with diuresing. Will try to get her blood pressure of with albumin and continue giving her Lasix so she can lay down for the duration of the cardia c catheterization. 2. Cardiac catheterization will be hopefully Tuesday; continue Mucomyst 3. Pain control as needed 4. Continue with cardiac meds 5. Strict blood sugar and blood pressure control; diet and exercise regimen has been discussed with the patient 6. Out of bed and ambulate 7. GI and DVT prophylaxis Discharge Plan: Home Plan to discharge in: Greater than 2 days - Advance Directives Does patient have a Living Will: No Does patient have a Durable POA for Healthcare: No - Code Status/Comfort Care Code Status: Full Code Critical Care: No Time Spent Managing PTS Care (In Minutes): 35
[2020-08-24] MEDS ORDERED: INSULIN -REGULAR HUMAN 50 UNIT/0.5 ML ML ONE (16:17)
[2020-08-24] MEDS ORDERED: FUROSEMIDE 20 MG/ 2ML VIAL ONE (16:20)
[2020-08-24] MEDS: ROSUVASTATIN 10 MG TAB PO SCH (20:50)
[2020-08-25] MEDS: FUROSEMIDE 40 MG/4 ML VIAL IV SCH (01:00)
[2020-08-25] MEDS: PIPER/TAZO/NS 3.375gm 3.375 GM/100 ML BAG IVPB SCH (01:00)
[2020-08-25 04:33] LABS: Potassium 4.4 mmol/L (3.5-5.1)
[2020-08-25] MEDS ORDERED: METOPROLOL TAR 25 MG TAB ONE (05:22)
[2020-08-25] MEDS: INSULIN -REGULAR HUMAN 50 UNIT/0.5 ML ML SQ SCH ×2 (06:05→12:55)
[2020-08-25] MEDS: ASPIRIN 325 MG TAB PO SCH ×2 (06:32→08:47)
[2020-08-25] MEDS: CLOPIDOGREL 75 MG TABLET PO SCH ×2 (06:35→08:47)
[2020-08-25] MEDS ORDERED: METOPROLOL TAR 50 MG TAB ONE (06:47)
--- NOTE | 2020-08-25 07:19 | P.PN ---
Subjective Date of Service: 08/25/20 Primary Care Provider: Sergio Pride Chief Complaint: Dyspnea/NSTEMI/acute kidney injury Subjective: Improving Physical Examination - Vital Signs Temperature: 97.2 F Blood Pressure: 134/64 Pulse: 91 Respirations: 18 Pulse Ox (%): 94 - Physical Exam General: Alert, In no apparent distress, Oriented x3, Cooperative HEENT: Atraumatic Neck: Supple Respiratory: Clear to auscultation bilaterally, Normal air movement Cardiovascular: Normal pulses, Regular rate/rhythm Gastrointestinal: Normal bowel sounds, No tenderness, No masses, No rebound, No guarding Neurological: Normal speech, Normal strength at 5/5 x4 extr, Normal tone, Normal affect - Studies Microbiology Data (last 24 hrs): 08/19/20 23:49 Blood - Blood Aerobic Blood Culture - Final No growth in 5 days. 08/19/20 23:49 Blood - Blood Anaerobic Blood Culture - Final No growth in 5 days. 08/19/20 23:40 Blood - Blood Aerobic Blood Culture - Final No growth in 5 days. 08/19/20 23:40 Blood - Blood Anaerobic Blood Culture - Final No growth in 5 days. Medications List Reviewed: Yes Assessment & Plan Discharge Plan: Home Plan to discharge in: 24 Hours Physician Review Additional Text: Impression: Dyspnea secondary to NSTEMI with underlying CAD with history of stents Acute on chronic systolic CHF Diabetes mellitus type 2 insulin-dependent with hyperglycemia Chronic renal disease stage III Hypertension Hyperlipidemia Hypoventilation obesity syndrome Obesity, BMI 49.7 Plan: Dyspnea secondary to NSTEMI with underlying CAD with history of stents: Patient stable this time. No significant shortness of breath noted. Patient has been diuresed. Patient received Mucomyst in preparation for heart catheterization today. Will discuss further with cardiology. Await findings. Anticipate possible discharge within the next 24 hr pending heart catheterization findings. Acute on chronic systolic CHF: Will decrease IV Lasix to twice daily. Echo reviewed. Continue 1500 cc per day fluid restriction. Diabetes mellitus type 2 insulin-dependent with hyperglycemia: Continue with basal insulin. Needs better control. Continue to monitor Accu-Cheks and sliding scale in place. Will recommend endocrinology evaluation as an outpatient to continue treatment. Chronic renal disease stage III: Will check renal ultrasound. Patient would benefit with nephrology evaluation. This could potentially be done as an outpatient. Patient has received Mucomyst in preparation for heart catheteriza tion. Hypertension: Continue losartan and metoprolol. Hyperlipidemia: Continue Crestor Hypoventilation obesity syndrome: Patient should be evaluated for obstructive sleep apnea as an outpatient. Obesity, BMI 49.7: Continue lifestyle modification education. Time Spent Managing Pts Care (In Minutes): 55
[2020-08-25] MEDS ORDERED: ACETYLCYST 20% 800 MG/4 ML VIAL PO SCH (07:31)
[2020-08-25] MEDS ORDERED: FENTANYL CITR 100 MCG/2 ML ONE (07:49)
[2020-08-25] MEDS ORDERED: HEPA 1000U/500MLS 2,000 UNIT/1,000 ML BAG IV ONE (07:49)
[2020-08-25] MEDS ORDERED: MIDAZOLAM HCL 2 MG/2 ML INJ ONE (07:49)
[2020-08-25] MEDS ORDERED: NICARDIPINE HCL 25 MG/10 ML IV ONE (07:49)
[2020-08-25] MEDS ORDERED: HEPARIN 5000 UNIT/ML 1 ML VIAL ONE ×2 (07:49→08:59)
[2020-08-25] MEDS ORDERED: NITROGLYCERIN 100 MCG/ML SYR (for cath lab use only) IV ONE (07:50)
[2020-08-25] MEDS ORDERED: NITROGLYCERIN/D5W 25 MG/250 ML BTL IV ONE (07:50)
[2020-08-25] MEDS ORDERED: ATROPINE SULF 1 MG/10 ML SYR IV ONE (07:50)
[2020-08-25] MEDS ORDERED: LIDOCAINE 1% MPF 5 ML VIAL ONE (07:50)
[2020-08-25] MEDS ORDERED: NA CHLORIDE 0.9% 500 ML ONE (08:11)
[2020-08-25] MEDS ORDERED: ACETYLCYST 20% 4 ML VIAL IH ONE (08:29)
[2020-08-25] MEDS: VITAMIN B COMPLEX 1 CAP PO SCH (08:47)
[2020-08-25] MEDS: AMITRIPTYLINE 25 MG TAB PO SCH (08:47)
[2020-08-25] MEDS: GABAPENTIN 300 MG CAP PO SCH (08:47)
[2020-08-25] MEDS: LOSARTAN POTASSIUM 50 MG TABLET PO SCH (08:47)
[2020-08-25] MEDS: VITAMIN D 5,000 UNIT CAP PO SCH (08:47)
[2020-08-25] MEDS ORDERED: HEPARIN 10,000 UNIT/10 ML VIAL IV ONE (08:58)
[2020-08-25] MEDS ORDERED: PRASUGREL (EFFIENT) 10 MG TAB ONE (08:58)
[2020-08-25] MEDS ORDERED: METOPROLOL TAR 50 MG TAB PO SCH (09:00)
[2020-08-25] MEDS ORDERED: FUROSEMIDE 40 MG/4 ML VIAL IV SCH (09:00)
--- NOTE | 2020-08-25 10:51 | PN ---
Date of Progress Note: 08/24/2020 Subjective: We have been following Ms. Post for acute systolic congestive heart failure, subend ocardial [place], ejection fraction of 39%. We had attempted to do a catheterization last week on Ms. Jake morrison, but she could not lay flat. At that time, Lasix IV was increased to 80 three times a day and she has diuresed significantly and is able to lay flat now. The last creatinine is 1.5. She denied any chest pain at this point. Objective: VITAL SIGNS: Remained stable. She is afebrile. CHEST: Clear. EXTREMITIES: Still has some edema. Assessment/plan: We will plan to do a catheterization on 08/25/2020 to define by coronary anatomy th at will be done by Dr. Ng. She understands the risks and the benefits of the procedure and she a greed to proceed. LIANNA/WAQAR Voice ID: [id number] Report ID: [id number]
[2020-08-25] MEDS ORDERED: GLUCAGON 1 MG/VIAL IM PRN (15:12)
[2020-08-25] MEDS ORDERED: D50W 25 GM/50 ML SYRINGE/VIAL IV PRN (15:12)
[2020-08-25] MEDS ORDERED: INSULIN -REGULAR HUMAN 50 UNIT/0.5 ML ML SQ SCH (16:30)
--- NOTE | 2020-08-25 16:32 | P.DS ---
Admission Date: 08/20/20 Discharge Date: 08/25/20 Primary Care Provider: Sergio Pride Disposition: TRANSFER TO [facility] Discharge Condition: GOOD Reason for Admission: Dyspnea/NSTEMI/acute kidney injury Consultations: Cardiology-Dr. Ng Procedures: ECHO: EF 43% LEFT VENTRICULAR WALL MOTION: MILD GLOBAL HYPOKINESIS DOPPLER/COLOR FLOW: NORMAL COMMENTS: MILD GLOBAL HYPOKINESIS. EJECTION FRACTION 43%. TECHNICALLY DIFFICULT STUDY. NO EFFUSION. V/Q scan: FINDINGS: A small area of diminished radiotracer uptake involves the left lateral lung base on ventilation and perfusion sequences The remainder of the lungs demonstrate relatively homogeneous radiotracer ac tivity on ventilation and perfusion sequences. No mismatched segmental or lobar perfusion defects are seen. IMPRESSION: The patient has a low probability for a pulmonary embolus Heart Catheterization: Heart catheterization report noted. RCA 100% stenosis, LAD 95% stenosis. Mid LAD 90% stenosis. Circumflex distal 70% stenosis. Medical Problem List: Dyspnea secondary to NSTEMI with prior history of CAD and stents, status post heart catheterization showing 100% stenosis of the RCA, 95% stenosis of the LAD, 90% mid LAD stenosis, and 70% stenosis of the distal circumflex Acute on chronic systolic CHF Diabetes mellitus type 2 insulin-dependent with hyperglycemia Chronic renal disease stage III Hypertension Hyperlipidemia Hypoventilation obesity syndrome Asymptomatic bacteriuria, urine culture positive for E coli Obesity, BMI 49.7 Brief History of Present Illness: 65-year-old female with multiple medical problems including CAD with prior stent, CHF, diabetes mellitus type 2, and hypertension. Patient presented with increasing shortness of breath over several days. Patient was evaluated in the emergency room. Patient found to have elevated troponin suspicious for NSTEMI. Patient also found to have acute on chronic CHF exacerbation. The patient was admitted for further evaluation and treatment. Hospital Course: Patient presented with dyspnea secondary to NSTEMI with history of CAD and prior stent. Patient was admitted for further evaluation and treatment. Patient seen and evaluated by Cardiology. Cardiology recommended heart catheterization. Due to her chronic renal disease, the patient received Mucomyst prior to heart catheterization. There was some suspicion for pneumonia but this was not identified. Patient was given Zosyn for 7 days. Patient had asymptomatic bacteriuria. Antibiotic therapy has been discontinued. The patient was also treated for acute on chronic systolic CHF. Patient received IV diuresis with improvement. V/Q scan unremarkable. COVID test negative. Heart catheterization performed showed RCA 100% stenosis, LAD 95% stenosis, Mid LAD 90% stenosis, and Circumflex distal 70% stenosis. Cardiology recommended transfer to high-level care center for cardiac bypass. The patient prefers to go to [facility]. Cardiology spoke to CV surgery who agrees with plan of care. Patient to be transferred to [facility] once approved and bed available. At this time patient currently stable for transfer. For her acute on chronic systolic CHF the patient remains on Lasix 80 mg twice daily. She continues with 1500 cc per day. Patient with diabetes mellitus type 2 insulin-dependent with hyperglycemia. Patient remains on basal insulin. She may continue with this at at this time. Sliding scale also in place. Patient with chronic renal disease stage III. As mentioned above patient received Mucomyst in preparation for heart catheterization today. This can be followed closely. Medications may need to be further renally adjusted. Recommend no nonsteroidal anti-inflammatories. Patient with hypertension. Patient will continue with losartan and metoprolol. Patient with hyperlipidemia. Patient will continue with Crestor. Patient with hypoventilation obesity syndrome. Patient should have sleep study done as an outpatient to further evaluate for obstructive sleep apnea. Lifestyle modification education provided. Vital Signs/Physical Exam: Temp Pulse Resp BP Pulse Ox 97.0 F 94 H 12 115/54 L 96 08/25/20 10:41 08/25/20 10:41 08/25/20 10:41 08/25/20 10:41 08/25/20 08:06 General: Alert, In no apparent distress, Oriented x3, Cooperative HEENT: Atraumatic Neck: Supple Respiratory: Clear to auscultation bilaterally, Normal air movement Cardiovascular: Normal pulses, Regular rate/rhythm Gastrointestinal: Normal bowel sounds, Soft and benign, Non-distended, No tenderness, No masses, No rebound, No guarding Neurological: Normal speech, Normal strength at 5/5 x4 extr, Normal tone, Normal affect Laboratory Data at Discharge: WBC 8.8 K/uL (4.3-10.9) 08/24/20 05:52 Hgb 11.1 g/dL (12.0-15.0) L 08/24/20 05:52 Hct 34.2 % (36.0-45.0) L 08/24/20 05:52 Plt Count 298 K/uL (152-406) 08/24/20 05:52 PT 13.6 SECONDS (9.5-12.5) H 08/24/20 05:52 INR 1.16 08/24/20 05:52 APTT 49.2 SECONDS (24.3-36.9) H 08/24/20 05:52 Sodium 138 mmol/L (136-145) 08/25/20 03:35 Potassium 4.4 mmol/L (3.5-5.1) 08/25/20 03:35 BUN 34 mg/dL (7-18) H 08/25/20 03:35 Creatinine 1.58 mg/dL (0.55-1.3) H 08/25/20 03:35 Glucose 260 mg/dL (74-106) H 08/25/20 03:35 Phosphorus 4.1 mg/dL (2.5-4.9) 08/24/20 05:52 Magnesium 1.9 mg/dL (1.8-2.4) 08/24/20 05:52 Total Bilirubin 0.4 mg/dL (0.2-1.0) 08/24/20 05:52 AST 20 U/L (15-37) 08/24/20 05:52 ALT 30 U/L (12-78) 08/24/20 05:52 Alkaline Phosphatase 123 U/L (45-117) H 08/24/20 05:52 Troponin I 3.08 ng/mL (0.0-0.045) H* D 08/20/20 22:04 Triglycerides 154 mg/dL (<150) H 08/21/20 05:58 Cholesterol 105 mg/dL (<200) 08/21/20 05:58 HDL Cholesterol 51 mg/dL (40-60) 08/21/20 05:58 Cholesterol/HDL Ratio 2.06 08/21/20 05:58 Home Medications: Aspirin 325 mg PO DAILY 04/18/16 Clopidogrel Bisulfate [Plavix*] 75 mg PO DAILY 04/18/16 Gabapentin [Gralise] 300 mg PO BID 04/18/16 Losartan Potassium [Cozaar] 100 mg PO DAILY 04/18/16 Metformin HCl [Glucophage] 1,000 mg PO BID 04/18/16 Metoprolol Tartrate [Lopressor] 100 mg PO BID 04/18/16 Rosuvastatin [Crestor*] 20 mg PO BEDTIME 04/18/16 Amitriptyline [Elavil] 25 mg PO BID 08/20/20 Chlorthalidone 25 mg PO DAILY 08/20/20 Cholecalciferol (Vitamin D3) [Vitamin D3] 5,000 unit PO DAILY 08/20/20 Ferrous Fumarate/Vit Bcomp&C [Super B-Complex Caplet] 1 each PO DAILY 08/20/20 Insulin Degludec [Tresiba] 80 unit SQ BEDTIME 08/20/20 NPH, Human Insulin Isophane [Humulin N] 100 unit SQ AC 08/20/20 Patient Discharge Instructions: Patient be transferred to [facility] for high-level care treatment including cardiac bypass. Continue current medications at this time. Diet: ADA Activity: Ad aric Time spent managing pt's care (in minutes): 55
[2020-08-25 17:25] VITALS: BP 120/60; TEMP 97.3
[2020-08-25 18:34] VITALS: O2SAT 95
--- NOTE | 2020-08-25 18:43 | RAD REPORT ---
EXAM DESCRIPTION: US - Renal Ultrasound-Complete - 08/25/2020 6:21 pm CLINICAL HISTORY: suspect chronic renal disease Flank pain COMPARISON: No comparisons FINDINGS: Both kidneys are normal in size, shape and echotexture. The right kidney measures 10.1 x 5.4 x 4.4 cm. No hydronephrosis, focal mass or perinephric fluid. The left kidney measures 11.8 x 6.1 x 4.9 cm. No hydronephrosis, focal mass or perinephric fluid. The urinary bladder is incompletely distended without gross abnormality seen. IMPRESSION: Unremarkable renal sonogram.
--- NOTE | 2020-08-25 23:51 | OP ---
Date of Procedure: 08/25/2020 Surgeon: JOSE RAUL BRIGHT Procedure Performed: Selective coronary angiogram. Access: Right radial artery 6-Swazi closed with TR band. Indication: Non-ST elevation myocardial infarction. Total Sedation Time: 35 minutes. Description Of Procedure: After risks, benefits, and alternatives were explained, the patient agreed to proceed and signed informed consent, and accessed right radial artery using a pediatric micropunc ture kit. Then, we sent a 4-Swazi JL 3.5 catheter into the aortic root, engaged left main and took standard views, and then took a 4-Swazi JR4 catheter into the aortic root, engaged the right coronar y artery and took standard views. Then, we took the catheters out and the sheath and placed TR band with good hemostasis. Findings: 1.Left main, large, with luminal irregularities. 2.LAD has proximal severe more than 95% stenosis, heavily calcified and then followed by a mid 90% s tenosis and then 30% to 40% in-stent restenosis. Mid to distal target is very good for bypass. 3.Left circumflex has mid to distal 70% stenosis and OM1 is totally occluded and there is an old beth nt that is totally occluded. 4.RCA [employer]IST proximally. Conclusion: Severe multivessel disease. Recommendation: Transfer for CT Surgery evaluation. SR/MODL Voice ID: [id number] Report ID: [id number]
== END 2020-08-25 19:13 | disposition short-term general hospital (02) | DRG 280 ==
LOC: ER 22:37 → ERHOLD 08-20 01:24 → 4TH 08-20 02:57 → 2ND 08-24 15:15
PROVIDERS: ADMIT Hospitalist; ATTEND Family Medicine
PROC: 4A023N7 Measurement of Cardiac Sampling and Pressure, Left Heart, Percutaneous Approach (ICD-10-PCS; principal; 2020-08-25)
PROC: B2111ZZ Fluoroscopy of Multiple Coronary Arteries using Low Osmolar Contrast (ICD-10-PCS; 2020-08-25)
DX: I21.4 Non-ST elevation (NSTEMI) myocardial infarction (principal); J96.00 Acute respiratory failure, unspecified whether with hypoxia or hypercapnia; I50.23 Acute on chronic systolic (congestive) heart failure; N17.9 Acute kidney failure, unspecified; E66.2 Morbid (severe) obesity with alveolar hypoventilation; I13.0 Hypertensive heart and chronic kidney disease with heart failure and stage 1 through stage 4 chronic kidney disease, or unspecified chronic kidney disease; Z68.42 Body mass index [BMI] 45.0-49.9, adult; N18.30 Chronic kidney disease, stage 3 unspecified; E11.22 Type 2 diabetes mellitus with diabetic chronic kidney disease; E11.65 Type 2 diabetes mellitus with hyperglycemia; E78.5 Hyperlipidemia, unspecified; I25.10 Atherosclerotic heart disease of native coronary artery without angina pectoris; B96.20 Unspecified Escherichia coli [E. coli] as the cause of diseases classified elsewhere; R79.1 Abnormal coagulation profile; Z95.5 Presence of coronary angioplasty implant and graft; Z90.49 Acquired absence of other specified parts of digestive tract; Z91.09 Other allergy status, other than to drugs and biological substances; Z79.82 Long term (current) use of aspirin; Z79.02 Long term (current) use of antithrombotics/antiplatelets; Z79.4 Long term (current) use of insulin; Z79.899 Other long term (current) drug therapy; Z20.828 Contact with and (suspected) exposure to other viral communicable diseases
CPT/HCPCS: 36415; 71045; 76770; 78582; 80048; 80053; 80061; 80076; 81003; 81015; 82805; 82947; 83036; 83605; 83735; 83880; 84100; 84145; 84484; 85025; 85379; 85610; 85730; 87040; 87077; 87086; 87088; 87186; 93005; 93306; 93454; 99285; A9540; A9558; C1893; J1644; J1650; J1940; J2250; J2543; J3010; J7030; J7040; P9047; U0003